=== PATIENT | male | born 1985 | race Caucasian/White ===

== ENCOUNTER 2019-04-07 14:22 | Emergency (ER) | payer OTHER ==
--- NOTE | 2019-04-07 16:22 | UC ---
Respiratory Complaint HPI - HPI Summary HPI Summary: Pt is a 34 year old male reporting head congestion body aches and cough for the last 5-6 days. Patient states over the last 2-3 days intermittently he's had some blood in the sputum. Patient states he feels as coughing and all the symptoms are getting better including the sputum but wanted to be checked. Patient denies fevers or chills. Patient states he does feel fatigued. No rashes. No shortness of breath. No chest pain. No abdominal pain. Patient states his appetite slowly come back. Patient denies history of lung disease. Patient did travel to visit family over the holidays states they were sick people playing. Patient works at [employer] in the [employer] dept Patient's medications is entered in the EMR triage reviewed this visit. - History of Current Complaint Chief Complaint: UCRespiratory Stated Complaint: COUGHING UP BLOOD Time Seen by Provider: 04/07/19 16:21 Severity Initially: Mild Severity Currently: Mild Pain Intensity: 2 - Allergies/Home Medications Allergies/Adverse Reactions: Allergies Allergy/AdvReac Type Severity Reaction Status Date / Time No Known Allergies Allergy Verified 04/07/19 14:41 PMH/Surg Hx/FS Hx/Imm Hx Previously Healthy: Yes - Surgical History Surgical History: None - Family History Known Family History: Positive: Non-Contributory - Social History Occupation: Employed Full-time - [employer] Lives: Dormitory/Roommates Alcohol Use: Occasionally Substance Use Type: None Smoking Status (MU): Current Some Day Smoker Review of Systems All Other Systems Reviewed And Are Negative: Yes Constitutional: Positive: Fatigue Skin: Positive: Negative Eyes: Positive: Negative ENT: Positive: Nasal Discharge, Sinus Congestion Respiratory: Positive: Cough Cardiovascular: Positive: Negative Gastrointestinal: Positive: Negative Genitourinary: Positive: Negative Physical Exam - Summary Physical Exam Summary: Vital Signs Reviewed: Yes A+Ox3, no distress, speaking easy, full sentences Eyes: Conjunctiva Clear, ADALID. EOM intact and full ENT: Hearing grossly normal TM x 2 clear, mmoist, uvula midline, no exudate, no erythema Neck: Positive: Supple Respiratory: Positive: No respiratory distress, No accessory muscle use + CTA throughout no w/r no increased WOB, Cardiovascular: RRR nl s1, s2 no m/r CBT <2 sec abd soft + BS nt/nd no guarding, no distension Musculoskeletal Exam: HUNG x 4 without difficulty Strength Intact, ROM Intact Neurological: Positive: Alert, + sensation throughout Psychological: Positive: Normal Response To examiner Skin: Positive: no rash, no ecchymosis Triage Information Reviewed: Yes Vital Signs: Initial Vital Signs Temp 99.0 F 04/07/19 14:39 Pulse 77 04/07/19 14:39 Resp 18 04/07/19 14:39 BP 113/72 04/07/19 14:39 Pulse Ox 100 04/07/19 14:39 Diagnostics - Radiology No standard instances Radiology Interpretation Completed By: Radiologist - Patient Name: SANTHOSH KENNEDY Medical Record#: [id number] Ordering Physician: Laisha Chang MD Acct.#: [id number] : 1985 Age: 34 Sex: M Location: [facility] Exam Date: 04/07/19 163 ADM Status: REG ER Order Information: CHEST PA & LAT 2 VWS Accession Number: [id number] CPT: 36583 Indication: Hemoptysis. 2 views of the chest are reviewed. Dual-energy PA views demonstrate no mediastinal shift. Heart is of normal size and configuration. Lung ogden are clear. IMPRESSION: No active cardiopulmonary disease is noted. <Electronically signed by Yusra Stuart MD in OV> [id number] Dictated By: Yusra Stuart MD Dictated Date/Time: 04/07/191707 Transcribed Date/Time: 04/07/191707 Copy to: CC:Laisha Chang MD; No Primary Care Phys,NOPCP Imaging - [facility] Imaging - [facility] [address] [place] [address] ph ) ph ([phone]) ph ([phone]) This report is only to be considered final once signed by the Provider(s) as displayed in the "<Electronically Signed by >" field (s). Absence of a signature indicates the report is in a draft status and still needs to be finalized. In the event this document was created by someone other than the signing Provider, the individual initiating the document will be listed in the "Entered by:" or "Dictated by:" ogden. 1 of 1 Respiratory Course/Dx - Course Course Of Treatment: Patient is a 34-year-old gentleman presented to urgent care states he has had a URI and chest cold for the last 6-7 days. Patient states his symptoms are getting better. Patient states over the last 2 days he has intermittently had some blood tinged sputum. Patient denies feeling short of breath. States his coughing is getting better. Patient states he just wanted to get checked but he thinks he is doing okay. On exam vital signs are stable. Patient well- appearing. Patient with very minimal coughing and good breath sounds throughout. Discussed with patient that symptomatically he is feeling better but there is some concern that his sputum is getting progressively green in no blunt edge. We'll do a chest x-ray. Patient does not have any risk factor identified for tuberculosis and has never had a positive PPD. Chest x-ray is negative for likely discharge home recommended humidifier she's not currently doing this. Recommend he take a cough medication as needed. We'll likely send a prescription the patient can fill in 2-3 days if symptoms progress. Comfortable and agreement with plan - Differential Dx/Diagnosis Provider Diagnosis: Cough Discharge ED - Sign-Out/Discharge Documenting (check all that apply): Patient Departure All imaging exams completed and their final reports reviewed: Yes - Discharge Plan Condition: Stable Disposition: HOME Prescriptions: Amoxicillin PO (*) [Amoxicillin 500 MG CAP*] 500 mg PO Q12H #20 cap Patient Education Materials: Viral Syndrome (ED), Acute Cough (ED) Forms: *Gen. Provider Communication, *Work Release Referrals: [facility]IAN REFERRAL [Outside] No Primary Care Phys,NOPCP [Primary Care Provider] - Additional Instructions: -Stay well hydrated - avoid excess caffeine and all alcohol - eat regular, healthy meals - humidify the air in the room where you sleep - boil water, run a hot steam shower, vaporizer, cups of water by heat register - okay to take over the counter decongestant and cough medication - get plenty of restful sleep - These infections are spread by secretions - do NOT share eating or drinking utensils - clean items you share with other people such as cell phones, computer mouse, TV remote, computer tablets,etc.. Once you start to feel better , change your toothbrush and your pillowcase. - If you symptoms worsen over the next 24 hours, okay to take the antibiotics as prescribed -Contact your doctor to arrange a follow-up appointment this week. Call your doctor, return here or go to the emergency department with any questions or concerns - Billing Disposition and Condition Condition: STABLE Disposition: Home
== END 2019-04-07 17:31 | disposition home or self-care (01) ==
LOC: UCEAST 14:22
DX: R04.2 Hemoptysis (principal); R53.83 Other fatigue; R09.81 Nasal congestion; Z72.0 Tobacco use
CPT/HCPCS: 71046; 99201; G0463